=== PATIENT | female | born 1945 | race Caucasian/White ===

== ENCOUNTER 2016-10-02 09:51 | Outpatient (CLI) | payer MEDICARE, OTHER ==
[2016-05-17 09:28] VITALS: BP 144/82
== END 2016-10-02 09:52 ==
LOC: LAB 09:51
PROVIDERS: ATTEND Clinical Nurse Specialist Medical-Surgical
DX: M81.0 Age-related osteoporosis without current pathological fracture (principal); Z87.310 Personal history of (healed) osteoporosis fracture; E55.9 Vitamin D deficiency, unspecified
CPT/HCPCS: 36415; 82306; 82310

== ENCOUNTER 2016-11-17 08:30 | Outpatient (CLI) | payer MEDICARE, OTHER ==
[2016-05-17 09:28] VITALS: BP 144/82
== END 2016-11-17 08:32 ==
LOC: OUT 08:30
PROVIDERS: ATTEND General Practice
DX: N76.0 Acute vaginitis (principal)
CPT/HCPCS: G0463

== ENCOUNTER 2017-01-12 08:30 | Outpatient (CLI) | payer MEDICARE, OTHER ==
[2016-05-17 09:28] VITALS: BP 144/82
== END 2017-01-12 08:33 ==
LOC: OUT 08:30
PROVIDERS: ATTEND General Practice
DX: L90.0 Lichen sclerosus et atrophicus (principal); E11.9 Type 2 diabetes mellitus without complications
CPT/HCPCS: G0463

== ENCOUNTER 2017-01-12 08:32 | Outpatient (CLI) | payer MEDICARE, OTHER ==
[2016-05-17 09:28] VITALS: BP 144/82
[2017-01-12 10:15] LABS: eGFR (African) > 60; eGFR (Non-African) > 60
== END 2017-01-12 08:33 ==
LOC: LAB 08:32
PROVIDERS: ATTEND Family Medicine
DX: E11.9 Type 2 diabetes mellitus without complications (principal)
CPT/HCPCS: 36415; 80053; 80061; 82043; 83036

== ENCOUNTER 2017-01-14 10:02 | Outpatient (CLI) | payer MEDICARE, OTHER ==
[2016-05-17 09:28] VITALS: BP 144/82
--- NOTE | 2017-01-14 11:29 | Diagnostic Imaging Report ---
PARMJIT AVILA [facility] [address] [facility] [address] [address] Report Submission Date: Jan 14, 2017 11:26:37 AM CDT Patient Study Name: HAI VSOS Date: Jan 14, 2017 10:17:07 AM CDT Modality Type: US Gender: F Description: DPLX SCN XTRCRAN ART CMP JAYDEN : 43 Institution: [facility] Physician: PARMJIT AVILA Ultrasound carotid Doppler History: Followup carotid artery stenosis. History of hyperlipidemia and diabetes. Spectral Doppler sonography of the carotid and vertebral arteries is performed. On the right there is moderate hyperechoic plaque in the carotid bulb and internal carotid artery origin. Antegrade right carotid and vertebral artery flow is observed with normal Doppler waveforms in the common carotid, internal carotid, external carotid, and vertebral arteries. On the left there is also moderate eccentric hyperechoic plaque in the carotid bulb/internal carotid artery origin. Antegrade left carotid and vertebral artery flow is observed with normal Doppler waveforms. Peak systolic velocities in the internal carotid arteries are 81 cm per second right and 82 left. Internal to common carotid artery ratios are 1.1 right and 1.2 left. Impression: 1. Using the 2003 radiologists in ultrasound consensus conference criteria, there is no carotid stenosis. 2. Antegrade vertebral artery flow. Electronically signed on Jan 14, 2017 11:26:37 AM CDT by: Edgar METZ
== END 2017-01-14 10:03 ==
LOC: RAD 10:02
PROVIDERS: ATTEND Family Medicine
DX: I73.9 Peripheral vascular disease, unspecified (principal)
CPT/HCPCS: 93880

== ENCOUNTER 2017-02-23 08:31 | Outpatient (CLI) | payer MEDICARE, OTHER ==
[2016-05-17 09:28] VITALS: BP 144/82
== END 2017-02-23 08:32 ==
LOC: OUT 08:31
PROVIDERS: ATTEND General Practice
DX: L90.0 Lichen sclerosus et atrophicus (principal)
CPT/HCPCS: G0463

== ENCOUNTER 2017-04-21 08:54 | Outpatient (CLI) | payer MEDICARE, OTHER ==
[2016-05-17 09:28] VITALS: BP 144/82
[2017-04-21 09:53] LABS: eGFR (African) > 60; eGFR (Non-African) > 60
== END 2017-04-21 08:55 ==
LOC: LAB 08:54
PROVIDERS: ATTEND Clinical Nurse Specialist Medical-Surgical
DX: M81.0 Age-related osteoporosis without current pathological fracture (principal); Z87.310 Personal history of (healed) osteoporosis fracture; E55.9 Vitamin D deficiency, unspecified
CPT/HCPCS: 36415; 80053; 82306

== ENCOUNTER 2017-05-04 08:17 | Outpatient (CLI) | payer MEDICARE, OTHER ==
[2016-05-17 09:28] VITALS: BP 144/82
== END 2017-05-04 08:18 ==
LOC: OUT 08:17
PROVIDERS: ATTEND General Practice
DX: N90.4 Leukoplakia of vulva (principal)
CPT/HCPCS: G0463

== ENCOUNTER 2017-06-02 15:03 | Outpatient (CLI) | payer MEDICARE, OTHER ==
[2016-05-17 09:28] VITALS: BP 144/82
[2017-06-02 15:16] LABS: APPEARANCE,URINE Cloudy (CLEAR); COLOR,URINE Yellow (YELLOW); OCCULT BLOOD,URINE Negative (NEGATIVE); PH URINE 6.5 (5.0 - 8.0); UROBILINOGEN URINE 0.2 Eu (0.2-1.0)
[2017-06-02 15:22] LABS: AMORPHOUS SEDIMENT,UR FEW (NEGATIVE)
== END 2017-06-02 15:04 ==
LOC: LAB 15:03
PROVIDERS: ATTEND Family Medicine
DX: R10.9 Unspecified abdominal pain (principal); N39.0 Urinary tract infection, site not specified
CPT/HCPCS: 81002; 87086; 87186

== ENCOUNTER 2017-07-28 15:16 | Outpatient (CLI) | payer MEDICARE, OTHER ==
[2016-05-17 09:28] VITALS: BP 144/82
--- NOTE | 2017-07-29 10:46 | OP Clinic Progress Note ---
REASON FOR VISIT: This 72-year-old pleasant female has a history of hoarseness, particularly losing voice just on getting up in the morning and sometimes sporadically. She also has a dry hacking cough. Sometimes her voice gets raspy but that is not particularly severe. The patient's voice is not severely hoarse at this office visit. She comes unattended. Using a flexible fiberoptic laryngoscope passed down the left side of the nostril, the nostril is somewhat narrow and the right side is a little more narrow due to some right-sided septal deviation. Her tongue base is somewhat retroplaced. I got a good look at her larynx with a pediatric fiberoptic laryngoscope. There is no evident mass, tumor, or paralysis. The vocal cords look just very slightly dry. By history, the patient has a very dry house. It is a very old 1800s level house and she does not know whether she has a humidifier. The overall picture is that there may be more of a SICCA syndrome with this. She does get fairly significantly dry. There is no gross disease of the larynx. I recommended a humidifier at bedside and to reduce the amount of residue, use distilled water. In retrospect, the patient notes that just over the last maybe 6 months as she has gotten more hoarse particularly in the mornings, she has a real thirst for lemonade and she drinks a diet-type of lemonade. She noted this when I suggested that she use some water with lemon in it at night to help produce more saliva in addition to lubricating the throat with water. Her habit of drinking the lemonade or lemon juice is dietetic as details of the SICCA issue. PLAN: In the larynx, it looks grossly normal. 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 I also note that she is a fairly marked mouth breather. She has some degree of nasal congestion. I did note that, although she did not have polyps in her nose, she had some degree of a narrow nose contributing to her being a mouth breather which would make the dryness of the larynx more significant. She may return on a p.r.n. basis, but she is to otherwise return to Dr. Sebastián Peoples. cc: Dr. Sebastián METZ
== END 2017-07-28 15:25 ==
LOC: ENT 15:16
PROVIDERS: ATTEND Otolaryngology
DX: R05 Cough (principal); R49.0 Dysphonia; M35.00 Sjogren syndrome, unspecified; R09.81 Nasal congestion
CPT/HCPCS: 31575; G0463

== ENCOUNTER 2017-10-19 15:37 | Outpatient (CLI) | payer MEDICARE, OTHER ==
[2016-05-17 09:28] VITALS: BP 144/82
--- NOTE | 2017-10-19 16:46 | Diagnostic Imaging Report ---
GERONIMO TRAN [facility] [address] [facility] [address] [address] Report Submission Date: Oct 19, 2017 4:46:03 PM SHANK BREAKER Patient Study Name: HAI VOSS Date: Oct 19, 2017 3:59:13 PM SHANK BREAKER Modality Type: DX Gender: F Description: LOWER EXTREMITY : 43 Institution: [facility] Physician: GERONIMO TRAN Examination: Plain film right knee History: Knee discomfort Findings: 3 views of the right knee demonstrates normal cortical margins. Mild medial joint space narrowing and ossific spurring. No fracture. No dislocation. No joint effusion. No posterior soft tissue irregularity. Impression: Mild degenerative changes. No acute appearing osseous abnormality. Electronically signed on Oct 19, 2017 4:46:03 PM SHANK BREAKER by: Felipe METZ
== END 2017-10-19 15:45 ==
LOC: RAD 15:37
PROVIDERS: ATTEND Family Medicine
DX: S80.01XA Contusion of right knee, initial encounter (principal); Y99.9 Unspecified external cause status; W19.XXXA Unspecified fall, initial encounter
CPT/HCPCS: 73562

== ENCOUNTER 2017-10-21 07:12 | Outpatient (CLI) | payer MEDICARE, OTHER ==
[2016-05-17 09:28] VITALS: BP 144/82
[2017-10-21 07:41] LABS: BASOPHILS % 0.9 (0.0-1.5); EOSINOPHILS % 1.9 % (0.0-6.8); MEAN CORPUSCULAR HEMOGLOBIN 32.3 pg (28.0-34.0); MONOCYTES % 6.9 % (0.0-11.0); NEUTROPHILS # 2.1 # k/uL (1.4-7.7)
[2017-10-21 08:03] LABS: eGFR (African) > 60; eGFR (Non-African) > 60
== END 2017-10-21 07:13 ==
LOC: LAB 07:12
PROVIDERS: ATTEND Clinical Nurse Specialist Medical-Surgical
DX: M81.0 Age-related osteoporosis without current pathological fracture (principal); Z79.899 Other long term (current) drug therapy; E55.9 Vitamin D deficiency, unspecified
CPT/HCPCS: 36415; 80053; 82306; 85025

== ENCOUNTER 2017-11-16 08:23 | Outpatient (CLI) | payer MEDICARE, OTHER ==
[2016-05-17 09:28] VITALS: BP 144/82
== END 2017-11-16 08:24 ==
LOC: OUT 08:23
PROVIDERS: ATTEND General Practice
DX: L90.0 Lichen sclerosus et atrophicus (principal)
CPT/HCPCS: G0463

== ENCOUNTER 2017-12-01 15:25 | Outpatient (CLI) | payer MEDICARE, OTHER ==
[2016-05-17 09:28] VITALS: BP 144/82
== END 2017-12-01 15:26 ==
LOC: RAD 15:25
PROVIDERS: ATTEND Clinical Nurse Specialist Medical-Surgical
DX: M81.0 Age-related osteoporosis without current pathological fracture (principal); Z87.310 Personal history of (healed) osteoporosis fracture; E55.9 Vitamin D deficiency, unspecified
CPT/HCPCS: 77080

== ENCOUNTER 2017-12-07 14:10 | Emergency (ER) | payer MEDICARE, OTHER ==
--- NOTE | 2017-12-07 14:31 | ED Physician Documentation ---
General Adult - HISTORIAN Historian: patient - HPI Stated Complaint: High Blood Pressure Chief Complaint: General Adult Additional Information: Patient states that she has had a stressful day today. Noticed that her heart seemed to be pounding some and was feeling strange like her BP might be elevated some. Patient denies any chest pain or pressure. No headache noted. Patient went to nurse to have her BP checked twice and it was in the 190s/ 80- 90. Patient is not on any blood pressure medication. Patient is diabetic but has not been checking her BS. Has been having some increase urinary output. Is not sure if she has been drinking a lot more then normal. Onset: hours Timing: still present, better - ROS CONST: no problems. denies: fever, chills - PAST HX Past History: other (depression) Other History: diabetes Type 2 Allergies/Adverse Reactions: Allergies Allergy/AdvReac Type Severity Reaction Status Date / Time No Known Allergies Allergy Verified 12/07/17 14:23 - SOCIAL HX Smoking History: non-smoker Alcohol Use: rarely Drug Use: none - FAMILY HX Family History: No - VITAL SIGNS Vital Signs: Vital Signs Temp Pulse Resp BP Pulse Ox 80 16 168/64 98 12/07/17 14:15 12/07/17 14:15 12/07/17 14:15 12/07/17 14:15 - REVIEWED ASSESSMENTS Nursing Assessment Reviewed: Yes Vitals Reviewed: Yes Progress - Progress Progress: BP at discharge 156/68 General Adult Physical Exam - PHYSICAL EXAM GENERAL APPEARANCE: no distress NECK: normal inspection, thyroid normal, supple RESPIRATORY: no resp distress, chest non-tender. No: wheezes, rales, rhonchi CVS: reg rate & rhythm, heart sounds normal, equal pulses ABDOMEN: soft SKIN: warm/dry EXTREMITIES: No: edema NEURO: oriented X3, CN's nml as tested Discharge Clincal Impression: Elevated blood pressure reading, Diabetes type 2, uncontrolled Referrals: Fortino Vela MD [Primary Care Provider] - 2 Days Additional Instructions: Start taking the Lisinopril as directed. Check blood sugar on a regular basis. If you have any further problems to call or return to the ED. Condition: Stable Disposition: 01 HOME, SELF-CARE Decision to Admit: NO Date of Decison to Admit: 12/07/17 Decision Time: 15:48
[2017-12-07 15:32] LABS: eGFR (Non-African) > 60
[2017-12-07] MEDS ORDERED: LISINOPRIL 5 MG TABLET PO ONE (15:44)
[2017-12-07 16:22] VITALS: BP 154/72
[2017-12-07 16:35] LABS: APPEARANCE,URINE CLEAR (CLEAR); COLOR,URINE YELLOW (YELLOW)
[2017-12-07 16:36] LABS: OCCULT BLOOD,URINE TRACE-LYSED (NEGATIVE); PH URINE 6.5 (5.0 - 8.0); UROBILINOGEN URINE 0.2 Eu (0.2-1.0)
== END 2017-12-07 16:18 | disposition home or self-care (01) ==
LOC: ED 14:10
DX: E11.9 Type 2 diabetes mellitus without complications (principal); R03.0 Elevated blood-pressure reading, without diagnosis of hypertension
CPT/HCPCS: 80053; 81002; 83036; 99283

== ENCOUNTER 2017-12-08 16:40 | Outpatient (CLI) | payer MEDICARE, OTHER ==
[2017-12-07 16:22] VITALS: BP 154/72
== END 2017-12-08 16:42 ==
LOC: LAB 16:40
PROVIDERS: ATTEND Family Medicine
DX: B18.2 Chronic viral hepatitis C (principal)
CPT/HCPCS: 36415; 87522

== ENCOUNTER 2017-12-17 18:06 | Emergency (ER) | payer MEDICARE, OTHER ==
--- NOTE | 2017-12-17 18:29 | ED Physician Documentation ---
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 Pt noted high bp at the time of these episodes and was seen by her pcp Dr. Peoples, who started pt on Lisinopril 10 mg po qd. Today pt had onset of L arm /hand numbness at school when she was sitting quietly and did not feel stressed. Pt went to nurse who found elevated XM=186/71. Pt had a feeling of tightness in her chest "like anxiety" together with pain in her back between her shoulder blades. Pt had some sob at this time, but no nausea or diaphoresis. She felt funny, she says, out of sorts. Pt did not have headache. Later while driving, L arm numbness recurred. At time of ER exam pt had only very slight numbness in her L finger tips. Pt has hx DM now on orals ( previously on insulin), hx Hep C which was cured, she reports. Pt had carotid doppler studies 2 yrs ago and reports approx 40% occlusion at that time.) - ROS CONST: weakness EYES/ENT: none CVS/RESP: shortness of breath GI/: none MS/SKIN/LYMPH: none NEURO/PSYCH: numbness (L arm/hand) - PAST HX Past History: other (HTN, DM) - SOCIAL HX Smoking History: non-smoker - FAMILY HX Family History: No - VITAL SIGNS Vital Signs: Vital Signs Temp Pulse Resp BP Pulse Ox 154/72 12/07/17 16:18 - REVIEWED ASSESSMENTS Nursing Assessment Reviewed: Yes Vitals Reviewed: Yes <Armen Taylor - Last Filed: 12/17/17 19:16> - HISTORIAN Historian: patient - HPI Further Comments: yes - VITAL SIGNS Vital Signs: Vital Signs Temp Pulse Resp BP Pulse Ox 98.6 F 68 20 141/75 98 12/17/17 18:12 12/17/17 18:44 12/17/17 18:12 12/17/17 18:12 12/17/17 18:44 <Paola Judge - Last Filed: 12/17/17 21:39> - PAST HX Allergies/Adverse Reactions: Allergies Allergy/AdvReac Type Severity Reaction Status Date / Time No Known Allergies Allergy Verified 12/17/17 18:44 Progress - Progress Progress: Care transferred to Paola Judge at 1900. - EKG/XRAY/CT EKG: NSR (HR=68; RBBB; LPFB; similar to EKG of 08/25/14.) <IsaArmen atkins Bal - Last Filed: 12/17/17 19:16> - Progress Progress: 1914: Pt is in room. Aware of shift change. She denies any chest pain. Denies any arm tingling or numbness. DG 1999: results discussed. CXR shows emphysema. She is aware. She did not smoke but her mother did. She states she has had pneumonia 6 or 7 times as an adult. DG <Paola Judge - Last Filed: 12/17/17 21:39> ED Results Lab/Radiology - Lab Results Lab Results: Lab Results 12/17/17 12/17/17 18:50 18:50 WBC 4.70 K/ul K/ul (4.00-12.00) RBC 4.46 M/ul M/ul (3.90-5.20) Hgb 13.9 g/dL g/dL (12.0-16.0) Hct 40.4 % % (34.5-46.5) MCV 90.6 fl fl (80.0-100.0) MCH 31.1 pg pg (28.0-34.0) MCHC 34.3 g/dL g/dL (30.0-36.0) RDW 12.8 % % (11.3-14.3) Plt Count 216 K/mm3 K/mm3 (130-400) Neut % (Auto) 61.7 % % (39.0-79.0) Lymph % (Auto) 30.1 % % (16.0-50.0) [place] % (Auto) 5.4 % % (0.0-11.0) Eos % (Auto) 1.1 % % (0.0-6.8) Baso % (Auto) 0.4 (0.0-1.5) Neut # (Auto) 2.9 # k/uL # k/uL (1.4-7.7) Lymph # (Auto) 1.4 # k/uL # k/uL (0.6-4.0) [place] # (Auto) 0.2 # k/uL # k/uL (0.0-0.9) Eos # (Auto) 0.0 # k/uL # k/uL (0.0-0.6) Baso # (Auto) 0.0 # k/uL # k/uL (0.0-0.5) Reactive Lymphs % 1.3 % % (0.0-5.0) Reactive Lymphs # 0.1 # k/uL # k/uL (0.0-0.8) Sodium 139 mmol/L mmol/L (136-145) Potassium 4.0 mmol/L mmol/L (3.5-5.1) Chloride 103 mmol/L mmol/L (98-107) Carbon Dioxide 25 mmol/L mmol/L (22-30) BUN 19 mg/dL H mg/dL (7-17) Creatinine 0.80 mg/dL mg/dL (0.52-1.04) Estimated Creat Clear 79 Est GFR ( Amer) > 60 (60 - ) Est GFR (Non-Af Amer) > 60 (60 - ) Glucose 160 mg/dL H mg/dL (74-106) Calcium 9.6 mg/dL mg/dL (8.4-10.2) Total Bilirubin 0.8 mg/dL mg/dL (0.2-1.3) AST 21 U/L U/L (15-46) ALT 15 U/L U/L (13-69) Alkaline Phosphatase 60 U/L U/L (38-126) Creatine Kinase 43 U/L U/L (30-135) Total Protein 8.0 g/dL g/dL (6.3-8.2) Albumin 4.6 g/dL g/dL (3.5-5.0) - Radiology Radiology Impressions: Single frontal view of the chest History: PCXR, CHEST PAIN AND ARM NUMBNESS TODAY No comparison studies Mild cardiomegaly. Aortic calcification. Mild prominence of the left hilum. There is no focal consolidation, pleural effusion or pneumothorax. Hyperinflated lungs. No acute osseous pathology. Impression: 1. Emphysema 2. Mild cardiomegaly. No focal consolidation or pleural effusion. Electronically signed on December 17, 2017 7:22:19 PM CDT by: Anyi Bowers - Orders Orders: ED Orders Category Date Time Status Continuous EKG monitoring Q30M Care 12/17/17 18:44 Active Continuous Pulse Oximetry Q30M Care 12/17/17 18:[address] IV Lock 1T Care 12/17/17 18:44 Active CHEST 1VIEW [RAD] Stat Exams 12/17/17 Ordered CBC/PLATELET/DIFF Routine Lab 12/17/17 18:50 Completed CKMB Stat Lab 12/17/17 18:50 Received CMP Routine Lab 12/17/17 18:50 Completed CREATINE KINASE Routine Lab 12/17/17 18:50 Completed D DIMER Stat Lab 12/17/17 18:50 Received NT-proBNP Stat Lab 12/17/17 18:50 Received PT-INR Routine Lab 12/17/17 18:50 Received PTT Routine Lab 12/17/17 18:50 Received TROPONIN I (cTnI) Stat Lab 12/17/17 18:50 Received Aspirin Med 12/17/17 18:44 Discontinued 324 mg PO NOW ONE Oxygen Daily Oxygen 12/17/17 18:45 Ordered EKG WITH COMPARISON Stat Ther 12/17/17 18:44 Ordered <Paola Judge - Last Filed: 12/17/17 21:39> General Adult Physical Exam - PHYSICAL EXAM GENERAL APPEARANCE: mild distress EENT: pharynx normal NECK: normal inspection, supple RESPIRATORY: no resp distress, chest non-tender, breath sounds normal CVS: reg rate & rhythm, heart sounds normal ABDOMEN: soft, no organomegaly, normal bowel sounds BACK: normal inspection, no CVA tenderness SKIN: warm/dry, normal color EXTREMITIES: non-tender, normal range of motion, no evidence of injury, no edema NEURO: oriented X3, CN's nml as tested, motor nml, sensation nml <Armen Taylor - Last Filed: 12/17/17 19:16> - PHYSICAL EXAM GENERAL APPEARANCE: no distress NECK: normal inspection RESPIRATORY: no resp distress, chest non-tender, breath sounds normal CVS: reg rate & rhythm, heart sounds normal ABDOMEN: soft, normal bowel sounds BACK: normal inspection SKIN: warm/dry, normal color EXTREMITIES: non-tender, normal range of motion, no evidence of injury, no edema NEURO: oriented X3, CN's nml as tested, motor nml, sensation nml <Paola Judge - Last Filed: 12/17/17 21:39> Discharge <Armen Taylor - Last Filed: 12/17/17 19:16> Comments: 1. Advair 250/50 - 1 inhalation twice daily (EVERY DAY - rinse mouth after use) 2. ProAir 90 mcg - 2 puffs by mouth every 4-6 hours as needed for cough or shortness of breath 3. Follow up with Dr Peoples as planned for work up 4. return to ER for any chest pain, shortness of breath or other concerns Decision to Admit: NO Date of Decison to Admit: 12/17/17 Decision Time: 20:28 <Paola Judge - Last Filed: 12/17/17 21:39> Clincal Impression: Emphysema lung Qualifiers: Emphysema type: unspecified Qualified Code(s): J43.9 - Emphysema, unspecified Referrals: Fortino Vela MD [Primary Care Provider] - 2 Days Condition: Stable Disposition: 01 HOME, SELF-CARE
[2017-12-17 18:43] VITALS: BP 141/75
[2017-12-17] MEDS ORDERED: ASPIRIN 81 MG CHEW TAB PO ONE (18:44)
[2017-12-17 19:07] LABS: BASOPHILS % 0.4 (0.0-1.5); EOSINOPHILS % 1.1 % (0.0-6.8); MEAN CORPUSCULAR HEMOGLOBIN 31.1 pg (28.0-34.0); MEAN CORPUSCULAR VOLUME 90.6 fl (80.0-100.0); MONOCYTES % 5.4 % (0.0-11.0); NEUTROPHILS # 2.9 # k/uL (1.4-7.7); eGFR (African) > 60; eGFR (Non-African) > 60
--- NOTE | 2017-12-17 19:45 | Diagnostic Imaging Report ---
[facility] [address] [facility] [address] Report Submission Date: December 17, 2017 7:22:19 PM CDT Patient Study Name: HAI VOSS Date: December 17, 2017 6:41:41 PM CDT Modality Type: DX Gender: F Description: CHEST : 43 Institution: [facility] Physician: JACOB MCDERMOTT Single frontal view of the chest History: PCXR, CHEST PAIN AND ARM NUMBNESS TODAY No comparison studies Mild cardiomegaly. Aortic calcification. Mild prominence of the left hilum. There is no focal consolidation, pleural effusion or pneumothorax. Hyperinflated lungs. No acute osseous pathology. Impression: 1. Emphysema 2. Mild cardiomegaly. No focal consolidation or pleural effusion. Electronically signed on December 17, 2017 7:22:19 PM CDT by: Anyi MEZT
[2017-12-17] MEDS ORDERED: IPRATROPIUM/ALBUTEROL SULFATE 3 ML AMPUL.NEB NEB ONE (20:06)
== END 2017-12-17 20:19 | disposition home or self-care (01) ==
LOC: ED 18:06
DX: J43.9 Emphysema, unspecified (principal); R20.2 Paresthesia of skin
CPT/HCPCS: 71045; 80053; 82550; 82553; 83880; 84484; 85025; 85379; 85610; 85730; 94640; 99285; S1016

== ENCOUNTER 2017-12-20 14:26 | Outpatient (CLI) | payer MEDICARE, OTHER ==
--- NOTE | 2017-12-20 17:59 | Diagnostic Imaging Report ---
GERONIMO TRAN [facility] [address] [facility] [address] [place], [place]. [address] Report Submission Date: December 20, 2017 3:09:45 PM CDT Patient Study Name: HAI VOSS Date: December 20, 2017 2:38:00 PM CDT Modality Type: CT\SR Gender: F Description: CT BRAIN W/O CONTRAST : 43 Institution: [facility] Physician: GERONIMO TRAN Examination: CT head without contrast History: LEFT HEMIPARESIS INCLUDING FACE (Hx) / ITS.REASON left hemiparesis including left face, arm and leg (DICOM Hx) Comparison exam: None available Technique: Noncontrast head CT protocol. Findings: Ventricles and sulci are consistent for patient age. Cerebrocerebellar parenchyma demonstrates periventricular low attenuation consistent with small vessel disease. No evidence for parenchymal hemorrhage. No evidence for mass or mass effect. No midline shift. No extra axial fluid collections. Partial visualization of the paranasal sinuses, mastoid air cells, orbits, skull and scalp without gross irregularity. Streak artifact from dental hardware. Impression: Age related changes. No acute parenchymal process. No hemorrhage. Consider obtaining MRI brain to further evaluate if clinically warranted. Electronically signed on December 20, 2017 3:09:45 PM CDT by: Felipe METZ
== END 2017-12-20 14:28 ==
LOC: RAD 14:26
PROVIDERS: ATTEND Family Medicine
DX: G81.94 Hemiplegia, unspecified affecting left nondominant side (principal)
CPT/HCPCS: 70450

== ENCOUNTER 2017-12-27 09:41 | Outpatient (CLI) | payer MEDICARE, OTHER ==
[2017-12-27] MEDS ORDERED: ALBUTEROL SULFATE 2.5 MG/3 ML AMPUL.NEB NEB ONE (09:57)
== END 2017-12-27 09:42 ==
LOC: RT 09:41
PROVIDERS: ATTEND Family Medicine
DX: R06.02 Shortness of breath (principal)
CPT/HCPCS: 94060

== ENCOUNTER 2018-02-22 11:34 | Outpatient (CLI) | payer MEDICARE, OTHER | END 2018-02-22 11:36 | LOC: LAB 11:34 | PROVIDERS: ATTEND Family Medicine | DX: E11.9 Type 2 diabetes mellitus without complications (principal) | CPT/HCPCS: 36415; 83036 ==

== ENCOUNTER 2018-03-10 09:57 | Outpatient (CLI) | payer MEDICARE, OTHER | END 2018-03-10 10:00 | LOC: LAB 09:57 | PROVIDERS: ATTEND Psychiatry & Neurology Neurology | DX: Z79.899 Other long term (current) drug therapy (principal) | CPT/HCPCS: 36415; 80061 ==

== ENCOUNTER 2018-04-25 15:17 | Outpatient (CLI) | payer MEDICARE, OTHER | END 2018-04-25 15:19 | LOC: LAB 15:17 | PROVIDERS: ATTEND Clinical Nurse Specialist Medical-Surgical | DX: M81.0 Age-related osteoporosis without current pathological fracture (principal); Z87.310 Personal history of (healed) osteoporosis fracture; E55.9 Vitamin D deficiency, unspecified | CPT/HCPCS: 36415; 82306; 82310 ==

== ENCOUNTER 2018-05-02 07:11 | Outpatient (CLI) | payer MEDICARE, OTHER | END 2018-05-02 07:30 | LOC: LAB 07:11 | PROVIDERS: ATTEND Family Medicine | DX: E11.9 Type 2 diabetes mellitus without complications (principal) | CPT/HCPCS: 36415; 83036 ==

== ENCOUNTER 2018-09-06 09:15 | Emergency (ER) | payer MEDICARE, OTHER ==
[2018-09-06 09:43] VITALS: BP 113/62
[2018-09-06 09:44] LABS: BASOPHILS % 0.4 (0.0-1.5); EOSINOPHILS % 1.6 % (0.0-6.8); MEAN CORPUSCULAR HEMOGLOBIN 29.6 pg (28.0-34.0); MONOCYTES % 4.4 % (0.0-11.0); NEUTROPHILS # 4.5 # k/uL (1.4-7.7)
--- NOTE | 2018-09-06 09:52 | ED Physician Documentation ---
Neuro Symptoms - HPI Stated Complaint: Numbness Chief Complaint: Neurological Symptoms Additional Information: Patient presents to ED with a sudden onset of left facial, mouth, left hand, left foot numbness and tingling. Patient states she had a stroke in November 2017 with similar symptoms. She was diagnosed with HTN at that time, started on Aspirin 325mg daily, Lovastatin. She is seen by Neurologist in [place]. Patient states she has been under a tremendous amount of stress lately. Her daughter just got out of drug rehab. Onset: hours (1) Timing: sudden onset Last known Well Date: 09/06/18 Last Known Well Time: 09:00 Last known Well Code/Unknown Code: Known Severity: mild - CHARACTERS OF DEFICIT New Weakness: none Altered Sensation: LUE (hand), LLE (foot), Lt facial Vision Problems: No Impaired Speech/ Swallowing: No Decreased Ability: none Cognition is Usually: alert, oriented x3 Gait is Usually: walks w/o assistance Associated Symptoms: none - ROS MENTAL STATUS: none CVS/Resp Upper Extremity Problem: none GI/ DYSPNEA: none MS/SKIN/LYMPH: none - PAST HX Past History: diabetes Type 2 Other History: none Surgeries/Procedures: none Allergies/Adverse Reactions: Allergies Allergy/AdvReac Type Severity Reaction Status Date / Time No Known Drug Allergies Allergy Verified 09/06/18 09:28 Home Medications: Ambulatory Orders Medication Instructions Recorded Aspirin EC [Ecotrin] 81 mg PO DAILY #30 tablet. 09/06/18 Clopidogrel Bisulfate [Plavix] 75 mg PO DAILY 30 Days #30 tablet 09/06/18 - FAMILY HX Family History: none - SOCIAL HX Smoking History: non-smoker Alcohol Use: none Drug Use: none - VITAL SIGNS Vital Signs: Vital Signs Temp Pulse Resp BP Pulse Ox 94 H 17 113/62 98 09/06/18 09:46 09/06/18 09:15 09/06/18 09:15 09/06/18 09:15 - REVIEWED ASSESSMENTS Nursing Assessment Reviewed: Yes Vitals Reviewed: Yes Progress - Progress Progress: 1020 Discussed results with patient. Recommended transfer to [facility] for further workup. Patient and patient's boyfriend (who states he is a physician) decline transfer. I then recommended starting daily Plavix and Aspirin of which is okay with patient/boyfriend. - EKG/XRAY/CT EKG: NSR Comments: 66 bpm RBBB ED Results Lab/Radiology - Lab Results Lab Results: Lab Results 09/06/18 09/06/18 09/06/18 09:20 09:20 09:20 WBC 6.90 K/ul K/ul (4.00-12.00) RBC 4.81 M/ul M/ul (3.90-5.20) Hgb 14.2 g/dL g/dL (12.0-16.0) Hct 43.5 % % (34.5-46.5) MCV 91.0 fl fl (80.0-100.0) MCH 29.6 pg pg (28.0-34.0) MCHC 32.7 g/dL g/dL (30.0-36.0) RDW 12.5 % % (11.3-14.3) Plt Count 245 K/mm3 K/mm3 (130-400) Neut % (Auto) 66.1 % % (39.0-79.0) Lymph % (Auto) 27.5 % % (16.0-50.0) [place] % (Auto) 4.4 % % (0.0-11.0) Eos % (Auto) 1.6 % % (0.0-6.8) Baso % (Auto) 0.4 (0.0-1.5) Neut # (Auto) 4.5 # k/uL # k/uL (1.4-7.7) Lymph # (Auto) 1.9 # k/uL # k/uL (0.6-4.0) [place] # (Auto) 0.3 # k/uL # k/uL (0.0-0.9) Eos # (Auto) 0.1 # k/uL # k/uL (0.0-0.6) Baso # (Auto) 0.0 # k/uL # k/uL (0.0-0.5) PT 10.3 Seconds Seconds (9.4-11.6) INR 0.98 (0.9-1.2) Sodium 138 mmol/L mmol/L (136-145) Potassium 4.1 mmol/L mmol/L (3.5-5.1) Chloride 100 mmol/L mmol/L (98-107) Carbon Dioxide 26 mmol/L mmol/L (22-30) BUN 14 mg/dL mg/dL (7-17) Creatinine 0.63 mg/dL mg/dL (0.52-1.04) Estimated Creat Clear 95 Est GFR ( Amer) > 60 (60 - ) Est GFR (Non-Af Amer) > 60 (60 - ) Glucose 287 mg/dL H mg/dL (74-106) Calcium 9.6 mg/dL mg/dL (8.4-10.2) Total Bilirubin 0.6 mg/dL mg/dL (0.2-1.3) AST 35 U/L U/L (15-46) ALT 13 U/L U/L (13-69) Alkaline Phosphatase 67 U/L U/L (38-126) Total Protein 8.6 g/dL H g/dL (6.3-8.2) Albumin 5.2 g/dL H g/dL (3.5-5.0) - Radiology Radiology Impressions: Examination: CT head without contrast History: SUDDEN ONSET FACIAL NUMBNESS, TROUBLE PUTTING WORDS TOGETHER, RECENT STROKE 8 MONTHS AGO. Comparison exam: None available for direct review. Technique: Noncontrast head CT protocol. Findings: Ventricles and sulci are mildly prominent. Cerebrocerebellar parenchyma demonstrates periventricular low attenuation consistent with small vessel disease. No evidence for parenchymal hemorrhage. No evidence for mass or mass effect. No midline shift. No extra axial fluid collections. Partial visualization of the paranasal sinuses, mastoid air cells, orbits, skull and scalp without gross irregularity. Impression: Age related changes. No acute parenchymal process. No hemorrhage. Depending on clinical circumstances, consider obtaining MRI brain to further evaluate. Electronically signed on Sep 06, 2018 9:47:09 AM ELECTRICAL INSTALLATION INSPECTOR by: Felipe Alvarado - Orders Orders: ED Orders Category Date Time Status Continuous EKG monitoring Q1H Care 09/06/18 09:[address] IV Lock 1T Care 09/06/18 09:[address] BRAIN W/O CONTRAST Stat Exams 09/06/18 Completed CBC/PLATELET/DIFF Routine Lab 09/06/18 09:20 Completed CMP Routine Lab 09/06/18 09:20 Completed PT-INR Routine Lab 09/06/18 09:20 Completed UA W MICRO [UA W/MICRO IF INDICATED] Routine Lab 09/06/18 09:35 Ordered Clopidogrel Bisulfate [Plavix] Med 09/06/18 10:30 Discontinued 75 mg PO NOW ONE Enoxaparin Sodium [Lovenox] Med 09/06/18 10:29 Discontinued 60 mg SQ NOW ONE EKG WITH COMPARISON Stat Ther 09/06/18 Completed Neuro Symptoms Physical Exam - Physical Exam General Appearance: no acute distress, alert HEENT: EOM's intact, PERRL Neuro/Psych: alert, oriented x3, no evidence of acute CVA (NIH Score = 0) Cranial Nerves: nml as tested. No: tongue deviation (R), tongue deviation (L) Cerebellar: nml as tested Pheripheral Exam: motor nml, reflexes nml. No: sensation nml (decreased sensation left face/left hand/left foot), weakness, hemiparesis Neck: supple Respiratory: no resp distress, chest non-tender, breath sounds normal CVS: reg rate & rhythm, heart sounds normal Abdomen: non-tender. No: tenderness Skin: color nml, no rash Extremities: non-tender Discharge Clincal Impression: TIA (transient ischemic attack) Prescriptions: Aspirin EC [Ecotrin] 81 mg PO DAILY #30 tablet. Clopidogrel Bisulfate [Plavix] 75 mg PO DAILY 30 Days #30 tablet Referrals: Fortino Vela MD [Primary Care Provider] - 2 Days Additional Instructions: 1. Stop taking Aspirin 325mg daily 2. Start Plavix 75mg daily and Aspirin 81mg daily on 09/07/18 3. Follow up with Dr. Melvin, your neurologist, as soon as possible. You may need an MRI/MRA brain/neck 4. Return to ER with new or worsening symptoms. Condition: Stable Disposition: 01 HOME, SELF-CARE Decision to Admit: NO Date of Decison to Admit: 09/06/18 Decision Time: 10:37
[2018-09-06 10:00] LABS: eGFR (Non-African) > 60
--- NOTE | 2018-09-06 10:18 | Diagnostic Imaging Report ---
MASON PARRY [facility] [address] [facility] [address] [place], [place]. [address] Report Submission Date: Sep 06, 2018 9:47:09 AM ELECTRONICS MAINTENANCE TECHNICIAN Patient Study Name: HAI VOSS Date: Sep 06, 2018 9:25:51 AM ELECTRONICS MAINTENANCE TECHNICIAN Modality Type: CT Gender: F Description: CT BRAIN W/O CONTRAST : 43 Institution: [facility] Physician: MASON PARRY Examination: CT head without contrast History: SUDDEN ONSET FACIAL NUMBNESS, TROUBLE PUTTING WORDS TOGETHER, RECENT STROKE 8 MONTHS AGO. Comparison exam: None available for direct review. Technique: Noncontrast head CT protocol. Findings: Ventricles and sulci are mildly prominent. Cerebrocerebellar parenchyma demonstrates periventricular low attenuation consistent with small vessel disease. No evidence for parenchymal hemorrhage. No evidence for mass or mass effect. No midline shift. No extra axial fluid collections. Partial visualization of the paranasal sinuses, mastoid air cells, orbits, skull and scalp without gross irregularity. Impression: Age related changes. No acute parenchymal process. No hemorrhage. Depending on clinical circumstances, consider obtaining MRI brain to further evaluate. Electronically signed on Sep 06, 2018 9:47:09 AM ELECTRONICS MAINTENANCE TECHNICIAN by: Felipe METZ
[2018-09-06] MEDS ORDERED: ENOXAPARIN SODIUM 60 MG/0.6 ML DISP.SYRIN SQ ONE (10:29)
[2018-09-06] MEDS ORDERED: CLOPIDOGREL BISULFATE 75 MG TABLET PO ONE (10:30)
== END 2018-09-06 11:05 | disposition home or self-care (01) ==
LOC: ED 09:15
DX: G45.9 Transient cerebral ischemic attack, unspecified (principal)
CPT/HCPCS: 36415; 70450; 80053; 85025; 85610; 99283; 99284; S1016

== ENCOUNTER 2019-01-30 08:20 | Day surgery (SDC) | payer MEDICARE, OTHER ==
[2019-01-30] MEDS ORDERED: PROPOFOL 200 MG/20 ML VIAL IV ONE (08:48)
[2019-01-30] MEDS ORDERED: LACTATED RINGERS 1,000 ML IV.SOLN IV ONE (08:48)
[2019-01-30] MEDS ORDERED: LIDOCAINE HCL 2% PF 100MG/5ML VIAL IJ ONE (08:48)
--- NOTE | 2019-02-09 13:07 | GI Report ---
OPERATIVE/PROCEDURE REPORT PATIENT NAME: HAI VOSS DATE OF : 1945 CHART#: [id number] DATE OF PROCEDURE: 01/30/2019 REFERRING PHYSICIAN: Dr. Vela. PROCEDURE PERFORMED: Colonoscopy. SURGEON: Kamaljit Awad M.D., Audrey. 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 Her father had colon cancer in his 50s. The patient has had hepatitis C in the past, treated with Harvoni. Also has diabetes for a number of years. She did have a stroke a number of years ago, and has been on Plavix but has been off of it for 5 days. She denies obvious blood in the stool, though she has had some change in bowel habits. PROCEDURE MEDICATION: Propofol, as per Anesthesia. DESCRIPTION OF PROCEDURE: The Olympus video colonoscope was advanced through the rectum. A few small diverticula were in the sigmoid colon. The colonoscope was advanced all the way to the cecum. We did lavage a couple areas to improve visibility in the colon. The cecum, ascending colon: No obvious intraluminal lesions were noted. Transverse colon: No obvious intraluminal lesions noted. Descending colon, sigmoid: Some redundancy and mild diverticular disease. No obvious diverticulitis. Retroflexion in the rectum was normal. The patient tolerated the procedure well. FINDINGS: Mild diverticular disease, sigmoid colon, with a slightly atonic redundant colon but normal otherwise. RECOMMENDATIONS: 1. Increase fiber in the diet. 2. She can restart her Plavix today, and other medicines. 3. Consider relook at her colon in 5 years unless sooner if clinically indicated. KAMALJIT AWAD M.D., F.A.C.P. AMADO/lis Job#: [id number] Cc: Dr. Vela ] [facility]
== END 2019-01-30 11:40 ==
LOC: OPSURG 08:20
PROVIDERS: ATTEND Internal Medicine Gastroenterology
DX: Z12.11 Encounter for screening for malignant neoplasm of colon (principal); K57.30 Diverticulosis of large intestine without perforation or abscess without bleeding; K59.8 Other specified functional intestinal disorders; Z80.0 Family history of malignant neoplasm of digestive organs; Z86.19 Personal history of other infectious and parasitic diseases
CPT/HCPCS: J2001; J2704; J7120

== ENCOUNTER 2019-01-31 10:35 | Outpatient (CLI) | payer MEDICARE, OTHER ==
[2019-02-08 07:28] LABS: A1C 7.8 % (-5.7)
== END 2019-01-31 10:40 | disposition home or self-care (01) ==
LOC: LAB 10:35
PROVIDERS: ATTEND Family Medicine
DX: N95.1 Menopausal and female climacteric states (principal); E11.9 Type 2 diabetes mellitus without complications; M81.0 Age-related osteoporosis without current pathological fracture; E55.9 Vitamin D deficiency, unspecified; Z87.310 Personal history of (healed) osteoporosis fracture
CPT/HCPCS: 36415; 82306; 82310; 82626; 82679; 83036; 84402; 84403; 86141

== ENCOUNTER 2019-06-19 17:02 | Outpatient (CLI) | payer MEDICARE, OTHER | END 2019-06-19 17:07 | LOC: LABRHC 17:02 | PROVIDERS: ATTEND Family Medicine | DX: E11.9 Type 2 diabetes mellitus without complications (principal) | CPT/HCPCS: 83036 ==